=== PATIENT | male | born 1990 | race Caucasian/White ===

== ENCOUNTER 2017-05-15 14:03 | Emergency (ER) | payer OTHER ==
[2017-05-15 14:24] VITALS: PULSE 86
[2017-05-15] MEDS ORDERED: DIPH,PERTUS(ACELL)TETVAC-LF 0.5 ML VIAL IM ONE (15:11)
--- NOTE | 2017-05-15 15:21 | XR ---
EXAMINATION TYPE: XR finger RT DATE OF EXAM: 05/15/2017 COMPARISON: NONE HISTORY: 27-year-old male with right middle finger pain and laceration TECHNIQUE: 3 views coned down right third digit FINDINGS: There is soft tissue injury to the tip of the middle finger and possible partial nail avulsion. There is comminuted fracture along the ulnar-sided tuft of the third distal phalanx weighted regional disp lacement of the 2 fracture fragments. No other acute fracture or dislocation. IMPRESSION: Soft tissue injury to the tip of the middle finger likely with partial nail avulsion. There is also c omminuted fractures to the ulnar aspect of the distal phalangeal tuft with regional displacement of 2 of the fracture fragments.
--- NOTE | 2017-05-15 15:48 | ED ---
Wound/Laceration HPI - General Chief Complaint: Wound/Laceration Stated Complaint: Finger injury Time Seen by Provider: 05/15/17 14:29 Source: patient Mode of arrival: ambulatory Limitations: no limitations - History of Present Illness Initial Comments: 27-year-old male patient presents to the emergency department today for evaluation of an injury to the right middle finger. Patient states that he was working in a garage when the doors slammed on the tip of his middle finger. He states his nail was partially tore off. He states there is a small laceration. He was able to get the bleeding under control. He is unsure when his last tetanus vaccine was given. He is currently rating his pain at a 4-10 on the pain scale. He denies any need for pain medications at this time. He denies any other injuries. Patient denies any headache, neck pain, back pain, chest pain, shortness of breath, dizziness, weakness, abdominal pain, nausea, vomiting , or difficulties with bowel movements or urination. - Related Data Previous Rx's Medication Instructions Recorded Acetaminophen-Codeine 300-30mg 1 tab PO Q6H PRN #15 tablet 05/15/17 [Tylenol #3] Cephalexin [Keflex] 500 mg PO Q6H #28 cap 05/15/17 Allergies Allergy/AdvReac Type Severity Reaction Status Date / Time No Known Allergies Allergy Verified 05/15/17 14:25 Review of Systems ROS Statement: Those systems with pertinent positive or pertinent negative responses have been documented in the HPI. ROS Other: All systems not noted in ROS Statement are negative. Past Medical History Past Medical History: No Reported History History of Any Multi-Drug Resistant Organisms: None Reported Past Surgical History: No Surgical Hx Reported Past Psychological History: No Psychological Hx Reported Smoking Status: Current every day smoker Past Alcohol Use History: Occasional Past Drug Use History: None Reported General Exam Limitations: no limitations General appearance: alert, in no apparent distress, other (This is a well- developed, well-nourished adult male patient in no acute distress. Vital signs upon presentation are temperature 98.9F, pulse 86, respirations 16, blood pressure 146/77, pulse ox 97% on room air.) Eye exam: Present: normal appearance, PERRL, EOMI. Absent: scleral icterus, conjunctival injection, periorbital swelling ENT exam: Present: normal exam, normal oropharynx, mucous membranes moist Respiratory exam: Present: normal lung sounds bilaterally. Absent: respiratory distress, wheezes, rales, rhonchi, stridor Cardiovascular Exam: Present: regular rate, normal rhythm, normal heart sounds. Absent: systolic murmur, diastolic murmur, rubs, gallop, clicks Extremities exam: Present: full ROM, tenderness (Over the tip of the middle finger.), normal capillary refill, other (There is a partial nail avulsion to the right middle finger, a small laceration extending over the lateral finger. Bleeding is controlled. Skin is otherwise pink, warm, and dry. Cap refills less than 3 seconds. Radial pulses are 2+ and equal bilaterally.). Absent: normal inspection, pedal edema, joint swelling, calf tenderness Neurological exam: Present: alert, oriented X3, CN II-XII intact Psychiatric exam: Present: normal affect, normal mood Skin exam: Present: warm, dry, intact, normal color. Absent: rash Course Vital Signs 05/15/17 05/15/17 14:21 16:02 Temperature 98.9 F 98.0 F Pulse Rate 86 86 Respiratory 16 174 H Rate Blood Pressure 146/77 121/67 O2 Sat by Pulse 97 96 Oximetry Procedures - Laceration Laceration #1 Time Out Performed: Yes Indication: laceration Site: other (Right middle finger) Size (cm): 1 Description: linear, avulsion (Nail avulsion) Anesthesia Technique: nerve block Amount (mls): 7 Pre-repair: irrigated extensively Type of Sutures: nylon Size of Sutures: 4-0 (2), 5-0 (2) Number of Sutures: 4 Technique: simple, interrupted Patient Tolerated Procedure: well, no complications Additional Comments: Nail was reinserted into the proximal nail fold and sutured in place. Laceration was repaired with 2 sutures. Medical Decision Making - Medical Decision Making 27-year-old male patient presented to the emergency department today for evaluation of injury to the distal tip of the right middle finger. Physical examination did reveal a partial nail avulsion with a small laceration extending over into the right medial nail fold. Laceration was repaired as documented. Patient was given a tetanus vaccine. He is instructed regarding wound care. He is instructed to return in 7 days for removal of stitches. He is instructed to follow-up with orthopedics if he has any further problems with instructed to return here immediately for any new, worsening, or concerning symptoms. He verbalizes understanding and agrees with this plan. - Radiology Data Radiology results: report reviewed, image reviewed 3 views of the right third digit shows soft tissue injury to the tip of the middle finger likely with partial nail avulsion. There is also comminuted fractures into the ulnar aspect of the distal phalangeal tuft with regional displacement of 2 of the fracture fragments. Impression is by Dr. Mehta. Disposition Clinical Impression: Finger fracture, right, Laceration of right middle finger, Nail avulsion Disposition: HOME SELF-CARE Condition: Good Instructions: Care For Your Stitches (ED), Finger Fracture (ED), Finger Laceration (ED) Additional Instructions: Keep wound clean and dry. Wash gently twice daily with warm water and antibacterial soap. Removed in 7 days for removal of stitches. Wear splint for 2-3 weeks. Monitor for signs or symptoms of infection. Return here immediately for any new, worsening, or concerning symptoms. Prescriptions: Acetaminophen-Codeine 300-30mg [Tylenol #3] 1 tab PO Q6H PRN #15 tablet PRN Reason: Pain Cephalexin [Keflex] 500 mg PO Q6H #28 cap Referrals: None,Stated [Primary Care Provider] - 1-2 days Time of Disposition: 15:48
[2017-05-15 16:08] VITALS: BP 121/67; RESP 174; TEMP 98
== END 2017-05-15 16:05 | disposition home or self-care (01) ==
LOC: EC 14:03
DX: S62.632A Displaced fracture of distal phalanx of right middle finger, initial encounter for closed fracture (principal); S61.312A Laceration without foreign body of right middle finger with damage to nail, initial encounter; F17.200 Nicotine dependence, unspecified, uncomplicated; Z23 Encounter for immunization; W23.0XXA Caught, crushed, jammed, or pinched between moving objects, initial encounter; Y92.59 Other trade areas as the place of occurrence of the external cause; Y93.89 Activity, other specified
CPT/HCPCS: 12001; 90471; 90715; 99283

== ENCOUNTER → 2020-08-20 | Outpatient (CLI) | payer OTHER ==
[2020-08-20 17:21] LABS: Follicle Stimulating Hormone 5.5 mIU/mL; Luteinizing Hormone 3.9 mIU/mL
== END | disposition home or self-care (01) ==
LOC: LABWHC1 09:20
PROVIDERS: ATTEND Urology
DX: N46.8 Other male infertility (principal)
CPT/HCPCS: 36415; 83001; 83002; 84403